=== PATIENT | male | born 1940 | race Two or more races ===

== ENCOUNTER 2018-05-31 10:07 | Outpatient (CLI) | payer OTHER ==
[~2018-05-31 10:07] MED LIST: FLONASE16 G1 NS; GILTUSS TR TAB1 EACH PO; HALCION0.25 MG; HALCION0.25 MG PO; HYZAAR 100/25 T1 TAB PO; NIFE60TA3; NIFE60TA3 PO; PROCARDIA90 MG/BLIS PO; ZANTAC300 MG PO; ZITHROMAX TRI-500 MG PO; ZYRTEC10 MG PO
== END 2018-05-31 10:13 | disposition home or self-care (01) ==
LOC: RAD 501 10:07
DX: S83.92XA Sprain of unspecified site of left knee, initial encounter (principal); M22.41 Chondromalacia patellae, right knee

== ENCOUNTER 2018-09-07 08:12 | Outpatient (CLI) | payer OTHER | END 2018-09-07 08:20 | disposition home or self-care (01) | LOC: RAD 501 08:12 | DX: R63.4 Abnormal weight loss (principal) ==

== ENCOUNTER 2018-09-13 08:56 | Outpatient (CLI) | payer OTHER | END 2018-09-13 09:19 | disposition home or self-care (01) | LOC: SONOGRAMA 08:56 | DX: R10.11 Right upper quadrant pain (principal) ==

== ENCOUNTER 2019-09-25 07:38 | Outpatient (CLI) | payer OTHER | END 2019-09-25 07:42 | disposition home or self-care (01) | LOC: LAB 07:38 | DX: J11.1 Influenza due to unidentified influenza virus with other respiratory manifestations (principal); D64.0 Hereditary sideroblastic anemia ==

== ENCOUNTER 2021-01-22 07:53 | Emergency (ER) | payer OTHER ==
[~2021-01-22] VITALS: Ht 172.7 cm; Wt 88.9 kg
[2021-01-22] MEDS ORDERED: KETO10TA2 PO (10:31)
[2021-01-22] MEDS ORDERED: CYCLOBENZAPRINE10 MG PO (10:31)
== END 2021-01-22 11:09 | disposition home or self-care (01) ==
LOC: ER 07:53
DX: G89.11 Acute pain due to trauma (principal); M54.5 Low back pain

== ENCOUNTER 2021-09-17 07:10 | Outpatient (CLI) | payer OTHER ==
[~2021-09-17 07:10] MED LIST changes: +CYCLOBENZAPRINE10 MG PO; +KETO10TA2 PO
== END 2021-09-17 07:15 | disposition home or self-care (01) ==
LOC: RAD 07:10
PROVIDERS: ATTEND Internal Medicine Cardiovascular Disease
DX: M12.9 Arthropathy, unspecified (principal); M46.47 Discitis, unspecified, lumbosacral region

== ENCOUNTER 2022-06-12 09:47 | Outpatient (CLI) | payer OTHER | END 2022-06-12 09:50 | disposition home or self-care (01) | LOC: NUCLEAR 09:47 | DX: R60.0 Localized edema (principal); L97.513 Non-pressure chronic ulcer of other part of right foot with necrosis of muscle ==

== ENCOUNTER 2022-09-24 07:23 | Outpatient (CLI) | payer OTHER | END 2022-09-24 07:25 | disposition home or self-care (01) | LOC: RAD 07:23 | PROVIDERS: ATTEND Physical Medicine & Rehabilitation | DX: M75.21 Bicipital tendinitis, right shoulder (principal) ==

== ENCOUNTER 2025-01-08 07:05 | Outpatient (CLI) | payer OTHER | END 2025-01-08 07:07 | disposition home or self-care (01) | LOC: RAD 07:05 | PROVIDERS: ATTEND Internal Medicine Cardiovascular Disease | DX: J44.9 Chronic obstructive pulmonary disease, unspecified (principal) ==